=== PATIENT | female | born 1995 | race Caucasian/White ===

== ENCOUNTER 2019-01-13 23:35 | Emergency (ER) | payer MEDICAID ==
[2019-01-14] MEDS ORDERED: ALBUTEROL 3 ML DEYVIAL IH ONE (00:15)
--- NOTE | 2019-01-14 00:18 | EDPHY ---
General - History Smoking Status: Former smoker Time Seen by Provider: 01/13/19 23:57 Narrative: PHYSICIAN DOCUMENTATION: The patient was evaluated and managed by the Physician Dictating Transcribing Machine Servicer. My co- signature indicates that I have reviewed this chart and I agree with the findings and plan of care as documented. I am the secondary supervising physician. (Karla Collins) CLINICAL IMPRESSION: Viral URI with cough ASSESSMENT/PLAN: 23-year-old 7 week female presents to the emergency department with complaints of cough and mild shortness of breath in the setting of viral URI symptoms. Vital signs stable, no hypoxia, tachycardia, chest pain. Lung sounds clear. Patient admits to using albuterol but has run out of her inhaler. She did feel improvement after an albuterol neb. There are no clinical signs of bacterial mucopurulent otitis media, sinusitis, tonsillitis, pharyngitis, or lower respiratory disease. No clinical indication for antibiotics. Patient was given a refill of her albuterol inhaler, advised to follow up with OBGYN as scheduled. No complaints of pelvic pain, vaginal bleeding or UTI symptoms today. Warning signs for return to ED sooner outlined and discharge. DIFFERENTIAL DX: Differential includes reactive airway disease, bronchitis, viral cough, asthma exacerbation ED COURSE: 12:10 a.m.: Patient seen assessed by myself. Plan for albuterol neb, refill albuterol prescription, DC to OBGYN. CHIEF COMPLAINT: Cough, shortness of breath HPI: 23-year-old 7 week female presents to the emergency department with cough and shortness of breath. Patient reports she gets reactive airway inflammation when she gets an infection. She has felt increasing cough over the last week and a half after her boyfriend was sick. No reports of vaginal bleeding. She has an appointment with OBGYN on January 25. No pelvic cramping. She is . No UTI symptoms. She has an albuterol inhaler but left it at her mom's house. PAST MEDICAL HISTORY: Currently , history of reactive airway disease See triage summary and nurse notes for addition applicable history Pertinent Past Surgical History: None reported Family History: Noncontributory Social History: 7 weeks REVIEW OF SYSTEMS: A full 10 point review of systems was negative except for those mentioned in HPI. PHYSICAL EXAM: General Appearance: Alert, oriented, appropriate, cooperative, poor eye contact , playing with her phone during my entire interview, NAD, well hydrated, non- toxic appearing, VSS, no hypoxia. HEENT: TMs are clear bilaterally no perforation or FB, no injection, no evidence of serous or mucopurulent otitis. Oropharynx clear is no erythema or exudates, no tonsillar hypertrophy or asymmetry. Dentition without abnormality. Eyes: PERRLA, no acute vision change, nystagmus, swelling, discharge, pain or photosensitivity. Conjunctiva pink, no pallor or injection Neck: Supple, nontender, no lymphadenopathy, no midline pain, FROM, no meningismus. Respiratory: There are no retractions, lungs are clear to auscultation. Cardiac: Regular rate and rhythm, no murmurs or gallops. Gastrointestinal: Abdomen is soft, nontender, bowel sounds normal, no masses/ hernia, no rigidity, guarding or focal peritoneal findings. Skin: Warm, dry, no rashes, no nodules on palpation. MEDICAL DECISION MAKING: Patient was seen independently. Secondary supervising physician at time of evaluation was: Dr. Collins . Diagnosis: Viral URI with cough . New, requires workup Summary: See Assessment and Plan for summary of ED visit Patient Progress: Stable for discharge. (Jared Roldan) - Objective Vital Signs: Initial Vital Signs Temperature (C) 37.4 C 01/13/19 23:38 Heart Rate 85 01/13/19 23:38 Respiratory Rate 18 01/13/19 23:38 Blood Pressure 101/64 01/13/19 23:38 O2 Sat (%) 98 01/13/19 23:38 O2 Delivery Mode Room Air Allergies/Adverse Reactions: avinash flavor Allergy (Severe, Verified 01/13/19 23:41) Anaphylaxis AVINASH Allergy (Severe, Uncoded 01/13/19 23:41) Anaphylaxis Home Medications: Medication Instructions Recorded Albuterol Hfa Anes Only [Proair 2 puffs IH QID #1 mdi 01/14/19 Hfa Icu (*)] Medications Given: Discontinued Medications Albuterol (Proventil Neb) 3 ml IH EDNOW ONE Stop: 01/14/19 00:16 Last Admin: 01/14/19 00:19 Dose: 3 ml Departure - Departure Disposition: Home, Routine, Self-Care Clinical Impression: Cough Condition: Good Instructions: Viral Syndrome (ED) Additional Instructions: DISCHARGE INSTRUCTIONS FROM YOUR DOCTOR Thank you for visiting our emergency department today. You were treated by a physician medical staff assistant today and your case was reviewed with our ED Attending physician. Please keep in mind that discharge from the emergency department does not mean that there is nothing wrong - it simply means that we have not identified an emergency condition that requires further evaluation or treatment in the hospital. You should always plan to follow up with primary care for re- evaluation of your condition in the next 2-3 days. If you have been referred to a specialist, please call as soon as possible (today or tomorrow) to schedule your follow up appointment at the appropriate time. A PRESCRIPTION FOR AN ADDITIONAL ALBUTEROL INHALER WAS PRESCRIBED. PLEASE USE THIS EVERY 4 HR NEEDED. YOU CAN ONLY USE TYLENOL IF NEEDED FOR BODY ACHES AND SORE THROAT. DO NOT USE IBUPROFEN IN . FOLLOW UP WITH HER OBGYN SCHEDULED. STAY WELL-HYDRATED. RETURN TO THE EMERGENCY DEPARTMENT FOR WORSENING COUGH, SHORTNESS OF BREATH, CHEST PAIN, VAGINAL BLEEDING, ABDOMINAL OR PELVIC PAIN, OR ANY OTHER CONCERNS. People present with illnesses and injuries in different ways, and it is always possible that we have missed something. You may always return for re-evaluation if symptoms worsen or if they are not improving or if you develop new/different symptoms. Again, thank you for choosing our emergency department. We hope that you feel better. Referrals: NONE *PRIMARY CARE P,. [Primary Care Provider] - As per Instructions Kristel Cartagena DO [Doctor of Osteopathy] - 5-7 days, call for appt. Prescriptions: Albuterol Hfa Anes Only [Proair Hfa Icu (*)] 2 puffs IH QID #1 mdi
[2019-01-14 01:13] VITALS: BP 104/68
== END 2019-01-14 01:14 | disposition home or self-care (01) ==
DX: O99.89 Other specified diseases and conditions complicating pregnancy, childbirth and the puerperium (principal); R05 Cough; R06.02 Shortness of breath; Z3A.01 Less than 8 weeks gestation of pregnancy
CPT/HCPCS: J7613

== ENCOUNTER 2019-03-17 09:38 | Emergency (ER) | payer MEDICAID ==
--- NOTE | 2019-03-17 10:47 | EDPHY ---
General - History Smoking Status: Former smoker Time Seen by Provider: 03/17/19 09:59 Narrative: CLINICAL IMPRESSION: VIRAL URI WITH COUGH, NAUSEA AND VOMITING ASSESSMENT/PLAN: 23-year-old female who is 16 weeks presents to the emergency department with 24 hr of cough and runny nose. Patient also had several episodes of unexplained vomiting this morning however has been drinking tea and water during her entire ED stay without vomiting. Initial vital signs showed tachycardia, repeat heart rate on my exam is 94. The patient does not appear severely dehydrated. She has no complaints of abdominal or pelvic pain, vaginal bleeding, flank pain or UTI symptoms. Bedside ultrasound by myself so does good activity with regular movement and a heart rate of 150. Patient is reassured by this. I do not see signs of secondary bacterial upper or lower respiratory disease. She has an albuterol inhaler at home that I encouraged she use as needed. We discussed Tylenol for fevers or aches, follow up with OBGYN, warning signs return to emergency department sooner discussed and discharge. ED COURSE: Bedside ultrasound by myself shows heart tones at 150, good activity and regular movement CHIEF COMPLAINT: Cough x 2 days, nausea and vomiting HPI: 23-year-old female presents to the emergency department with 24 hr of cough and runny nose as well as 2 episodes of vomiting yesterday and today. Patient is 16 weeks . She reports no complications with . She is followed by [facility]. She has had a routine screening ultrasound and normal lab work. She denies vaginal bleeding, pelvic pain, and lower abdominal pain. She does have albuterol inhaler prescribed for bronchitis when she was 6 weeks but has not tried taking this. She did take Tylenol last night which helped. She has not struggled with morning sickness and no history of hyperemesis gravidarum. No reported fevers but she has felt chilled. No chest pain or pleuritic discomfort. No diarrhea. Patient states "I am not worried about myself, I just want to see my baby". PAST MEDICAL HISTORY: None reported See triage summary and nurse notes for addition applicable history Pertinent Past Surgical History: None reported Family History: Noncontributory Social History: Currently 16 weeks REVIEW OF SYSTEMS: A full 10 point review of systems was negative except for those mentioned in HPI. PHYSICAL EXAM: General Appearance: Alert, oriented, appropriate, cooperative, NAD, well hydrated, non-toxic appearing, tachycardic at 107 On arrival, repeat heart rate by myself 94, patient drank half a cup of tea while I was visiting with her. No signs of severe dehydration. no hypoxia. HEENT: TMs are clear bilaterally no perforation or FB, no injection, no evidence of serous or mucopurulent otitis. Oropharynx clear is no erythema or exudates, no tonsillar hypertrophy or asymmetry. Dentition without abnormality. Eyes: PERRLA, no acute vision change, nystagmus, swelling, discharge, pain or photosensitivity. Conjunctiva pink, no pallor or injection Neck: Supple, nontender, no lymphadenopathy, no midline pain, FROM, no meningismus. Respiratory: There are no retractions, lungs are clear to auscultation. Cardiac: Regular rate and rhythm, no murmurs or gallops. Gastrointestinal: [Abdomen is soft, gravid, nontender, bowel sounds normal Skin: Warm, dry, no rashes, no nodules on palpation. MEDICAL DECISION MAKING: Patient was seen independently. Secondary supervising physician at time of evaluation was: Dr Mason . Diagnosis: Viral URI with cough . New, requires workup Summary: See Assessment and Plan for summary of ED visit Patient Progress: Stable for discharge. (Jared Roldan) Discussion: The patient was evaluated and managed by the Physician Bee Tender. My co- signature indicates that I have reviewed this chart and I agree with the findings and plan of care as documented. I am the secondary supervising physician. (Felicia Mason) - Objective Vital Signs: Initial Vital Signs Temperature (C) 36.7 C 03/17/19 09:41 Heart Rate 107 H 03/17/19 09:41 Respiratory Rate 18 03/17/19 09:41 Blood Pressure 103/60 03/17/19 09:41 O2 Sat (%) 98 03/17/19 09:41 O2 Delivery Mode Room Air Allergies/Adverse Reactions: avinash flavor Allergy (Severe, Verified 01/13/19 23:41) Anaphylaxis AVINASH Allergy (Severe, Uncoded 01/13/19 23:41) Anaphylaxis Home Medications: Medication Instructions Recorded NK [No Known Home Meds] 03/17/19 Departure - Departure Disposition: Home, Routine, Self-Care Clinical Impression: Viral URI with cough Condition: Good Instructions: Viral Syndrome (ED) Additional Instructions: DISCHARGE INSTRUCTIONS FROM YOUR DOCTOR Thank you for visiting our emergency department today. You were treated by a physician assistant scientist today and your case was reviewed with our ED Attending physician. Please keep in mind that discharge from the emergency department does not mean that there is nothing wrong - it simply means that we have not identified an emergency condition that requires further evaluation or treatment in the hospital. You should always plan to follow up with primary care for re- evaluation of your condition in the next 2-3 days. If you have been referred to a specialist, please call as soon as possible (today or tomorrow) to schedule your follow up appointment at the appropriate time. PLEASE REST AT HOME, STAY WELL-HYDRATED WITH SMALL AMOUNTS OF FLUID SPREAD OVER TIME, USE TYLENOL FOR BODY ACHES AND HEADACHE, FOLLOW UP WITH YOUR PRIMARY CARE DOCTOR ON TUESDAY. BEDSIDE ULTRASOUND SHOWED STRONG ACTIVITY AND HEART RATE AROUND 150. PLEASE RETURN TO THE EMERGENCY DEPARTMENT FOR PERSISTENT VOMITING, ABDOMINAL PAIN OR PELVIC CRAMPING, VAGINAL BLEEDING, INCREASED BACK PAIN, WORSENING COUGH, CHEST PAIN, OR ANY OTHER CONCERNS. People present with illnesses and injuries in different ways, and it is always possible that we have missed something. You may always return for re-evaluation if symptoms worsen or if they are not improving or if you develop new/different symptoms. Again, thank you for choosing our emergency department. We hope that you feel better. Referrals: NONE *PRIMARY CARE P,. [Primary Care Provider] - As per Instructions (FOLLOWUP WITH [facility] ON TUESDAY)
[2019-03-17 11:14] VITALS: BP 98/64
== END 2019-03-17 11:14 | disposition home or self-care (01) ==
DX: O21.8 Other vomiting complicating pregnancy (principal); O99.519 Diseases of the respiratory system complicating pregnancy, unspecified trimester; Z3A.16 16 weeks gestation of pregnancy